=== PATIENT | male | born 1950 | race Caucasian/White ===

== ENCOUNTER 2021-01-23 02:14 | Inpatient (IN) | payer OTHER, SELFPAY ==
[~2021-01-23] VITALS: Ht 177.8 cm; Wt 100.7 kg
[2021-01-23 02:14] VITALS: BP_SYST 160
[2021-01-23 04:30] LABS: BASOPHILS % (AUTO) 0.2 % (0.0-2.0); HEMATOCRIT 44.4 % (36-54); HEMOGLOBIN 14.4 g/dL (14.0-18.0); LYMPHOCYTES # (AUTO) 0.9 K/uL (1.0-5.5); LYMPHOCYTES % (AUTO) 7.3 % (20.5-51.5); MEAN CORPUSCULAR HEMOGLOBIN 29 pg (27-31); MEAN CORPUSCULAR HGB CONC 32 % (32-36); MEAN CORPUSCULAR VOLUME 89 fL (79.0-98.0); MONOCYTES # (AUTO) 1.3 K/uL (0.0-1.0); MONOCYTES % (AUTO) 9.9 % (1.7-9.3); NEUTROPHILS # (AUTO) 10.7 K/uL (1.8-7.7); NEUTROPHILS % (AUTO) 82.6 % (40.0-70.0); PLATELET COUNT (AUTO) 392 K/uL (130-430); RED BLOOD CELL COUNT(AUTO) 4.97 MIL/uL (4.2-6.2); RED CELL DISTRIBUTION WIDTH 24.2 % (9.0-15.0)
[2021-01-23 04:43] LABS: CALCIUM 8.9 mg/dL (8.4-11.0); CREATININE 0.71 mg/dL (0.55-1.30); POTASSIUM 4.3 mmol/L (3.5-5.1)
[2021-01-23 04:52] LABS: ALBUMIN 2.3 g/dL (3.4-4.8); TOTAL BILIRUBIN 0.5 mg/dL (0.0-1.0)
[2021-01-23 07:44] LABS: BILIRUBIN,URINE 1+ (NEGATIVE); BLOOD, URINE 2+ (NEGATIVE); GLUCOSE,URINE NEGATIVE (NEGATIVE); KETONES,URINE 1+ (NEGATIVE); LEUKOCYTE ESTERASE ,URINE NEGATIVE (NEGATIVE); NITRITE, URINE NEGATIVE (NEGATIVE); PROTEIN URINE 3+ (NEGATIVE); UROBILINOGEN,URINE 0.2 (0.2-1.0)
[2021-01-23 07:45] LABS: CLARITY/URINE SLIGHTLY HAZY (CLEAR); COLOR,URINE AMBER (YELLOW)
[2021-01-23 07:57] LABS: BACTERIA,URINE RARE /HPF (None Seen); RBC,URINE 0-3 /HPF (0-3); WBC,URINE NONE SEEN /HPF (0-3)
[2021-01-23] MEDS ORDERED: FUROSEMIDE 40 MG TABLET PO SCH (10:15)
[2021-01-23] MEDS ORDERED: DOCUSATE SODIUM 100 MG CAPSULE PO PRN (10:30)
[2021-01-23] MEDS ORDERED: ONDANSETRON HCL 4 MG/2 ML VIAL IVP PRN (10:30)
[2021-01-23] MEDS ORDERED: ACETAMINOPHEN 325 MG TABLET PO PRN (10:30)
[2021-01-23] MEDS ORDERED: NALOXONE HCL 0.4 MG/ML AMP (NARCAN) IVP PRN (10:30)
[2021-01-23 11:05] LABS: BASOPHILS % (AUTO) 0.1 % (0.0-2.0); HEMATOCRIT 42.2 % (36-54); HEMOGLOBIN 13.7 g/dL (14.0-18.0); LYMPHOCYTES # (AUTO) 0.8 K/uL (1.0-5.5); LYMPHOCYTES % (AUTO) 5.9 % (20.5-51.5); MEAN CORPUSCULAR HEMOGLOBIN 29 pg (27-31); MEAN CORPUSCULAR HGB CONC 32 % (32-36); MEAN CORPUSCULAR VOLUME 90 fL (79.0-98.0); MONOCYTES # (AUTO) 1.2 K/uL (0.0-1.0); MONOCYTES % (AUTO) 9.2 % (1.7-9.3); NEUTROPHILS # (AUTO) 11.3 K/uL (1.8-7.7); NEUTROPHILS % (AUTO) 84.8 % (40.0-70.0); PLATELET COUNT (AUTO) 368 K/uL (130-430); RED BLOOD CELL COUNT(AUTO) 4.67 MIL/uL (4.2-6.2); WHITE BLOOD COUNT (AUTO) 13.3 K/uL (4.8-10.8)
[2021-01-23 11:26] LABS: ALANINE AMINOTRANSFERASE 18 U/L (12-78); ALBUMIN 2.1 g/dL (3.4-4.8); AMYLASE 17 U/L (0-100); ANION GAP 5 (5-15); ASPARTATE AMINOTRANSFERASE 14 U/L (10-37); CALCIUM 8.6 mg/dL (8.4-11.0); CHLORIDE 104 mmol/L (98-107); CREATININE 0.65 mg/dL (0.55-1.30); FREE T4 (FREE THYROXINE) 0.8 ng/dl (0.8-1.5); GLUCOSE 212 mg/dL (70-99); LIPASE 36 U/L (73-393); PHOSPHORUS 4.2 mg/dL (2.7-4.5); POTASSIUM 4.1 mmol/L (3.5-5.1); SODIUM SERUM 138 mmol/L (136-145); TOTAL BILIRUBIN 0.5 mg/dL (0.0-1.0); UREA NITROGEN, BLOOD 18 mg/dL (8-21)
[2021-01-23 11:27] LABS: GFR AFRICAN AMERICAN 157 mL/min (>90)
[2021-01-23] MEDS ORDERED: DEXTROSE 50% JECT 50 ML DISP.SYRIN IVP PRN (14:45)
[2021-01-23] MEDS ORDERED: GLUCOSE (DEXTROSE) ORAL GEL -Adults PO PRN (14:45)
[2021-01-23 15:16] VITALS: BP_SYST 148
[2021-01-23] MEDS ORDERED: IOHEXOL 350 mgI/mL, 150 ML INFUS..BTL IV ONE (16:12)
[2021-01-23 16:48] VITALS: BP_SYST 149
[2021-01-23] MEDS: INSULIN LISPRO SLIDING SCALE 100 UNITS/ML VIAL (humaLOG) SUBCUT PRN ×2 (17:23→21:02)
[2021-01-23] MEDS ORDERED: ZOLPIDEM TARTRATE 5 MG TABLET PO PRN (20:15)
[2021-01-23] MEDS: CARVEDILOL 6.25 MG TABLET (COREG) PO SCH (20:54)
[2021-01-23 21:50] VITALS: BP_SYST 159
[2021-01-24 00:59] VITALS: BP_SYST 107
[2021-01-24 06:52] LABS: BASOPHILS % (AUTO) 0.1 % (0.0-2.0); EOSINOPHILS % (AUTO) 0.4 % (0.0-4.0); HEMOGLOBIN 13.2 g/dL (14.0-18.0); LYMPHOCYTES # (AUTO) 1.1 K/uL (1.0-5.5); MEAN CORPUSCULAR HEMOGLOBIN 29 pg (27-31); MEAN CORPUSCULAR HGB CONC 32 % (32-36); MEAN CORPUSCULAR VOLUME 90 fL (79.0-98.0); MONOCYTES # (AUTO) 1.2 K/uL (0.0-1.0); MONOCYTES % (AUTO) 11.3 % (1.7-9.3); NEUTROPHILS # (AUTO) 8.4 K/uL (1.8-7.7); NEUTROPHILS % (AUTO) 78.2 % (40.0-70.0); PLATELET COUNT (AUTO) 320 K/uL (130-430); RED BLOOD CELL COUNT(AUTO) 4.56 MIL/uL (4.2-6.2); WHITE BLOOD COUNT (AUTO) 10.8 K/uL (4.8-10.8)
[2021-01-24 08:00] VITALS: BP_SYST 146
[2021-01-24] MEDS: CARVEDILOL 6.25 MG TABLET (COREG) PO SCH ×2 (09:11→20:34)
[2021-01-24] MEDS: FUROSEMIDE 40 MG TABLET PO SCH (09:12)
[2021-01-24 09:46] LABS: ALBUMIN 2.1 g/dL (3.4-4.8); CALCIUM 8.7 mg/dL (8.4-11.0); CREATININE 0.57 mg/dL (0.55-1.30); PHOSPHORUS 3.8 mg/dL (2.7-4.5); POTASSIUM 4.1 mmol/L (3.5-5.1); THYROID STIMULATING HORMONE 1.98 uIu/mL (0.36-3.74); TOTAL BILIRUBIN 0.4 mg/dL (0.0-1.0)
[2021-01-24] MEDS: INSULIN LISPRO SLIDING SCALE 100 UNITS/ML VIAL (humaLOG) SUBCUT PRN ×2 (11:52→20:48)
[2021-01-24 12:06] VITALS: BP_SYST 135
[2021-01-24] MEDS: HYDROcodone/ACETAMIN 5-325 MG TAB (NORCO/ VICODIN) PO PRN ×2 (13:14→20:34)
[2021-01-24 16:04] VITALS: BP_SYST 102
[2021-01-24 20:00] VITALS: BP_SYST 158
[2021-01-25] VITALS: BP_SYST 139
[2021-01-25 06:56] LABS: BASOPHILS % (AUTO) 0.2 % (0.0-2.0); EOSINOPHILS # (AUTO) 0.1 K/uL (0.0-0.4); EOSINOPHILS % (AUTO) 0.7 % (0.0-4.0); HEMATOCRIT 40.9 % (36-54); LYMPHOCYTES # (AUTO) 0.9 K/uL (1.0-5.5); LYMPHOCYTES % (AUTO) 8.7 % (20.5-51.5); MEAN CORPUSCULAR HEMOGLOBIN 29 pg (27-31); MEAN CORPUSCULAR HGB CONC 32 % (32-36); MEAN CORPUSCULAR VOLUME 92 fL (79.0-98.0); MONOCYTES # (AUTO) 1.3 K/uL (0.0-1.0); MONOCYTES % (AUTO) 12.6 % (1.7-9.3); NEUTROPHILS # (AUTO) 8.2 K/uL (1.8-7.7); NEUTROPHILS % (AUTO) 77.8 % (40.0-70.0); PLATELET COUNT (AUTO) 304 K/uL (130-430); RED BLOOD CELL COUNT(AUTO) 4.43 MIL/uL (4.2-6.2); RED CELL DISTRIBUTION WIDTH 24.8 % (9.0-15.0); WHITE BLOOD COUNT (AUTO) 10.5 K/uL (4.8-10.8)
[2021-01-25 07:12] LABS: CALCIUM 8.9 mg/dL (8.4-11.0); CREATININE 0.51 mg/dL (0.55-1.30); PHOSPHORUS 4.3 mg/dL (2.7-4.5); POTASSIUM 4.5 mmol/L (3.5-5.1)
[2021-01-25 08:00] VITALS: BP_SYST 146
[2021-01-25 08:20] VITALS: BP_SYST 146
[2021-01-25] MEDS: FUROSEMIDE 40 MG TABLET PO SCH (09:06)
[2021-01-25] MEDS: CARVEDILOL 6.25 MG TABLET (COREG) PO SCH (09:07)
== END 2021-01-25 09:34 | disposition short-term general hospital (02) | DRG 291 ==
LOC: SED 02:14 → SMU 05:48 → STU 01-24 03:57
PROVIDERS: ADMIT Family Medicine; ATTEND Family Medicine
DX: I11.0 Hypertensive heart disease with heart failure (principal); J96.01 Acute respiratory failure with hypoxia; E43 Unspecified severe protein-calorie malnutrition; I50.43 Acute on chronic combined systolic (congestive) and diastolic (congestive) heart failure; E11.9 Type 2 diabetes mellitus without complications; E66.9 Obesity, unspecified; D49.89 Neoplasm of unspecified behavior of other specified sites; I42.0 Dilated cardiomyopathy; I49.3 Ventricular premature depolarization; Z20.822 Contact with and (suspected) exposure to COVID-19; I25.10 Atherosclerotic heart disease of native coronary artery without angina pectoris; J44.9 Chronic obstructive pulmonary disease, unspecified; Z68.31 Body mass index [BMI] 31.0-31.9, adult; Z87.891 Personal history of nicotine dependence
CPT/HCPCS: 36415; 71045; 71260-TC; 76376; 80048; 80053; 80061; 81000; 82150; 82962; 83036; 83690; 83735; 83880; 84100; 84439; 84443; 84484; 85025; 93005; 93306; 99285; G0378; Q9967

== ENCOUNTER 2021-01-28 07:25 | Inpatient (IN) | payer OTHER, SELFPAY ==
[~2021-01-28] VITALS: Ht 175.3 cm; Wt 102.1 kg
[2021-01-28 07:46] VITALS: BP_SYST 179
[2021-01-28 08:22] LABS: BASOPHILS % (AUTO) 0.3 % (0.0-2.0); EOSINOPHILS % (AUTO) 0.1 % (0.0-4.0); HEMATOCRIT 43.6 % (36-54); LYMPHOCYTES # (AUTO) 0.8 K/uL (1.0-5.5); LYMPHOCYTES % (AUTO) 7.7 % (20.5-51.5); MEAN CORPUSCULAR HEMOGLOBIN 29 pg (27-31); MEAN CORPUSCULAR HGB CONC 32 % (32-36); MEAN CORPUSCULAR VOLUME 91 fL (79.0-98.0); MONOCYTES # (AUTO) 1.5 K/uL (0.0-1.0); MONOCYTES % (AUTO) 14.5 % (1.7-9.3); NEUTROPHILS # (AUTO) 8.2 K/uL (1.8-7.7); NEUTROPHILS % (AUTO) 77.4 % (40.0-70.0); PLATELET COUNT (AUTO) 330 K/uL (130-430); RED BLOOD CELL COUNT(AUTO) 4.81 MIL/uL (4.2-6.2); RED CELL DISTRIBUTION WIDTH 22.8 % (9.0-15.0); WHITE BLOOD COUNT (AUTO) 10.6 K/uL (4.8-10.8)
[2021-01-28 08:32] LABS: CALCIUM 9.4 mg/dL (8.4-11.0); CREATININE 0.69 mg/dL (0.55-1.30); POTASSIUM 4.1 mmol/L (3.5-5.1)
--- NOTE | 2021-01-28 08:34 | NUR ---
BROUGHT IN BY [facility], PLACED IN BED #1 , REPORT GIVEN TO MARIA VICTORIA
--- NOTE | 2021-01-28 08:35 | NUR ---
MD LINDQUIST AT BEDSIDE ASSESSING PT.
[2021-01-28 08:36] LABS: INR 1.2 (0.80-1.20); PROTHROMBIN TIME 12.8 SECS (9.5-12.5)
[2021-01-28 08:38] LABS: ALBUMIN 2.2 g/dL (3.4-4.8); TOTAL BILIRUBIN 0.8 mg/dL (0.0-1.0)
--- NOTE | 2021-01-28 08:45 | NUR ---
PT PLACED ON MONITOR. PT IS ALERT, C/O SOB NOT FEELING WILL. HX BACK TUMOR.
[2021-01-28] MEDS ORDERED: IPRATROPIUM BROM 0.5 MG/2.5 ML VIAL.NEB (ATROVENT) INH ONE (09:45)
[2021-01-28] MEDS ORDERED: ALBUTEROL SULFATE 0.083% 2.5 MG/3 ML VIAL.NEB INH ONE (09:45)
[2021-01-28 10:34] LABS: BILIRUBIN,URINE 2+ (NEGATIVE); BLOOD, URINE 1+ (NEGATIVE); CLARITY/URINE CLEAR (CLEAR); GLUCOSE,URINE NEGATIVE (NEGATIVE); KETONES,URINE 1+ (NEGATIVE); LEUKOCYTE ESTERASE ,URINE NEGATIVE (NEGATIVE); NITRITE, URINE NEGATIVE (NEGATIVE); PH,URINE 6.5 (5.0-8.0); PROTEIN URINE 3+ (NEGATIVE)
[2021-01-28 10:59] LABS: COLOR,URINE AMBER (YELLOW)
[2021-01-28 11:09] LABS: BACTERIA,URINE RARE /HPF (None Seen); WBC,URINE 0-3 /HPF (0-3)
--- NOTE | 2021-01-28 12:51 | NUR ---
PT WITH LARGE TUMOR/MASS ON LEFT BACK. PT HAVING DIFFICULTY WITH MOVING IN BED. PT WAS ABLE TO TURN HIMSELF ALL THE WAY TO OTHER SIDE.
--- NOTE | 2021-01-28 13:30 | NUR ---
ADMIT ORDERS FROM DR. MARSHALL TO GO TO [facility] NOTED AND CARRIED OUT. PT HOLDING IN ER.
[2021-01-28] MEDS ORDERED: PANTOPRAZOLE SODIUM 40 MG TAB PO ONE (14:00)
[2021-01-28] MEDS ORDERED: lisinopriL 20 MG TABLET PO ONE (14:00)
[2021-01-28] MEDS ORDERED: DOCUSATE SODIUM 100 MG/10 ML UDC PO PRN (14:00)
[2021-01-28] MEDS ORDERED: MORPHINE 2 MG/ML INJ. SYRINGE IVP PRN (14:00)
[2021-01-28] MEDS ORDERED: PROMETHAZINE HCL/CODEINE 6.25-10 mg/5 mL UDC PO PRN (14:00)
[2021-01-28] MEDS: NACL 0.9% 1,000 ML IV SCH (14:00)
[2021-01-28] MEDS ORDERED: ONDANSETRON HCL 4 MG/2 ML VIAL IVP PRN (14:00)
[2021-01-28] MEDS ORDERED: IPRATROPIUM/ALBUTEROL SULFATE 3 ML AMPUL.NEB (DUONEB) INH PRN (14:00)
[2021-01-28] MEDS: IPRATROPIUM/ALBUTEROL SULFATE 3 ML AMPUL.NEB (DUONEB) INH SCH (15:00)
--- NOTE | 2021-01-28 15:58 | NUR ---
PT HAS BEEN UP TO TOILET AMBULATING. PT WALKS WELL.
[2021-01-28 16:31] VITALS: BP_SYST 165
--- NOTE | 2021-01-28 16:32 | NUR ---
pt is refusing to have an IV placed
[2021-01-28 16:39] LABS: CALCIUM 8.9 mg/dL (8.4-11.0); CREATININE 0.7 mg/dL (0.55-1.30); FREE T4 (FREE THYROXINE) 0.9 ng/dl (0.8-1.5); PHOSPHORUS 3.6 mg/dL (2.7-4.5); POTASSIUM 4.4 mmol/L (3.5-5.1); THYROID STIMULATING HORMONE 2.33 uIu/mL (0.36-3.74)
[2021-01-28 17:45] VITALS: BP_SYST 160
--- NOTE | 2021-01-28 17:45 | NUR ---
ADMITTED TO [facility], TAKEN BY RN AND TECH. REPORT TO KENZIE. RM [id number]
--- NOTE | 2021-01-28 17:45 | NUR ---
Admit from ER Patient arrived on Med-Surg unit, report received from Noe NGUYEN. Patient awake and oriented x 4. No signs or symptoms of pain or distress. Patient receiving 2 L of O2 via N/C saturating 100%. Respirations 24 bpm. Bilateral lung bases diminished. Ambulatory with minimal assist. Large mass on patient's back with two wounds present. Multiple dry scabs on lower extremities. Will endorse to night nurse.
--- NOTE | 2021-01-28 19:00 | NUR ---
Closing Note Patient states he wants to sleep. Resting comfortably, no distress or pain. States tolerable level of pain /10. Just ate sandwich. Safety precautions in place, bed locked in lowest position and call light in reach. Will endorse to night nurse.
--- NOTE | 2021-01-28 19:30 | NUR ---
Opening note Received report from day nurse. Pt resting turned to left side. Verbally responsive, alert x4. On 2L NC no respiratory distress, non labored breathing. IV on LFA in place SL. All needs attended to, call light within reach. Bed to lowest/locked/alarmed. On fall/aspiration precaution.
[2021-01-28 20:00] VITALS: BP_SYST 138
[2021-01-28] MEDS: ACETAMINOPHEN 500 MG TABLET PO PRN (20:53)
[2021-01-28] MEDS: ZOLPIDEM TARTRATE 5 MG TABLET PO PRN (20:53)
[2021-01-28] MEDS ORDERED: FUROSEMIDE 40 MG/4 ML VIAL IVP SCH (21:00)
[2021-01-29] VITALS: BP_SYST 133
--- NOTE | 2021-01-29 05:00 | NUR ---
note IV dislodge, pt refused to reinsert states "not right now, I want to sleep". Unable to collect sputum and urine at this time, pt is uncooperative. will reattempt at a later time.
--- NOTE | 2021-01-29 06:05 | NUR ---
Closing note Pt sleeping, on 2L NC non labored, no SOB noted at this time. Pt still refused to reinsert IV, explain the importance of having an IV access. Pt got agitated and says no. Will endorse to day shift and retry. Bed to lowest/locked/alarmed. Call light within reach, on fall/aspiration precaution.
[2021-01-29] MEDS: NACL 0.9% 1,000 ML IV SCH ×2 (06:40→23:47)
--- NOTE | 2021-01-29 06:53 | NUR ---
CONSULTATION PAGED/CALLED Reason for Consultation: [] CARDI Person Who was Notified: [] FLAKITO Consulting Physician: [] DR CASTANEDA Retort Cooler Specialty: [] CARDIO Ordering Physician: [] Patience CAMACHO
--- NOTE | 2021-01-29 07:05 | NUR ---
CONSULTATION PAGED/CALLED Reason for Consultation: [] [facility] Person Who was Notified: [] JACOBY Consulting Physician: [] Andra COELLO Kettle Tender Specialty: [] PULMO Ordering Physician: [] DR YOUNG
[2021-01-29] MEDS: IPRATROPIUM/ALBUTEROL SULFATE 3 ML AMPUL.NEB (DUONEB) INH SCH ×3 (07:32→15:00)
[2021-01-29 08:00] VITALS: BP_SYST 136
--- NOTE | 2021-01-29 08:39 | NUR ---
ALERT, ORIENTED, C/O " FELT SO CONGESTED" EXPLAINED HE HAS CHF, THAT IS THE REASON. AGREEABLE, AND COMPLIANT WITH CARE, ATTEMPTED A NEW HL FOR LASIX NOW. SUGAR OBTAINED
[2021-01-29] MEDS ORDERED: POTASSIUM CHLORIDE 20 MEQ TAB.PRT.SR PO PRN (09:00)
--- NOTE | 2021-01-29 09:33 | NUR ---
ATTENDING MD TERESA MARSHALL WAS CALLED, RE: PIC LINE ORDER, NO IV ACCESS. Addendum: 01/29/21 at 6881 by Mayra Toussaint MT/ CORRECTION: YOANDY COCHRAN OUTSOLE CEMENTER
[2021-01-29] MEDS ORDERED: FUROSEMIDE 40 MG TABLET PO ONE (09:45)
--- NOTE | 2021-01-29 09:48 | NUR ---
ALERT, ORIENTED, AND VERY APPROPRIATE. ATTEMPT X 2 FOR A NEW HL, UNSUCCESSFUL. ATTENDING AGREES WITH PICC LINE FOR THIS PATIENT TO GET LASIX IVP, FOR NOW LASIX 40MG PO GIVEN UNTIL PICC LINE IN AWARE AND CONSENT SIGNED.
--- NOTE | 2021-01-29 09:51 | NUR ---
Nutrition Update Michel Scale 17 noted. Pt admitted for pulmonary mass, SOB. Diet: regular BMI: 18.5 kg/m2 RD to follow per nutrition care standards.
[2021-01-29] MEDS: lisinopriL 20 MG TABLET PO SCH (10:13)
[2021-01-29] MEDS: PANTOPRAZOLE SODIUM 40 MG TAB PO SCH (10:13)
[2021-01-29 10:37] LABS: BASOPHILS # (AUTO) 0.2 K/uL (0.0-0.2); BASOPHILS % (AUTO) 1.3 % (0.0-2.0); EOSINOPHILS % (AUTO) 0.3 % (0.0-4.0); HEMATOCRIT 43.8 % (36-54); HEMOGLOBIN 13.9 g/dL (14.0-18.0); LYMPHOCYTES # (AUTO) 0.8 K/uL (1.0-5.5); LYMPHOCYTES % (AUTO) 6.5 % (20.5-51.5); MEAN CORPUSCULAR HEMOGLOBIN 29 pg (27-31); MEAN CORPUSCULAR HGB CONC 32 % (32-36); MEAN CORPUSCULAR VOLUME 91 fL (79.0-98.0); MONOCYTES # (AUTO) 1.6 K/uL (0.0-1.0); MONOCYTES % (AUTO) 12.3 % (1.7-9.3); NEUTROPHILS # (AUTO) 10.4 K/uL (1.8-7.7); NEUTROPHILS % (AUTO) 79.6 % (40.0-70.0); PLATELET COUNT (AUTO) 322 K/uL (130-430); RED CELL DISTRIBUTION WIDTH 22.5 % (9.0-15.0); WHITE BLOOD COUNT (AUTO) 13.1 K/uL (4.8-10.8)
[2021-01-29 10:40] LABS: CREATININE 0.77 mg/dL (0.55-1.30); POTASSIUM 3.5 mmol/L (3.5-5.1)
--- NOTE | 2021-01-29 10:53 | NUR ---
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 NEEDS NEB TX NOW, RT TO TAKE CARE OF THIS. RIGHT UPPER BACK, SWOLLEN, RED, DRY SCAB SEEN, DRESSING CHANGED , ANYWAY.
[2021-01-29 11:06] LABS: INR 1.2 (0.80-1.20); PROTHROMBIN TIME 12.7 SECS (9.5-12.5)
[2021-01-29 12:00] VITALS: BP_SYST 136
[2021-01-29] MEDS: HYDROcodone/ACETAMIN 7.5-325 MG TAB PO PRN ×2 (14:49→23:44)
--- NOTE | 2021-01-29 15:06 | NUR ---
NOT COMPLAINED OF PAIN ON RIGHT UPPER BACK,UNTIL NOW, WHERE PATIENT HAD A HUGE MASS, WHICH TREATED [place] RECENTLY. THE SITE RED, GROSSLY SWOLLEN, ONE NORCO 7.5/325MG PO NORCO GIVEN FOR PAIN
[2021-01-29 16:36] VITALS: BP_SYST 134
--- NOTE | 2021-01-29 19:30 | NUR ---
Opening note Received report from day nurse. Pt resting with HOB elevated and turned to the side. Eyes closed, alert x3. No respiratory distress, non labored breathing, no discomfort noted, on RA and pt requested 2L NC to be put back on. No IV access. All needs attended to, call light within reach. Bed to lowest/locked/alarmed. On fall/aspiration precaution.
[2021-01-29] MEDS ORDERED: FUROSEMIDE 40 MG TABLET PO SCH (21:00)
[2021-01-29 21:04] VITALS: BP_SYST 137
[2021-01-29] MEDS: CARVEDILOL 12.5 MG TABLET (COREG) PO SCH (21:31)
[2021-01-29] MEDS: ZOLPIDEM TARTRATE 5 MG TABLET PO PRN (21:32)
[2021-01-29] MEDS: ACETAMINOPHEN 500 MG TABLET PO PRN (21:32)
--- NOTE | 2021-01-29 23:24 | NUR ---
note PICC line in place and good to use, placement by PICC line nurse Pt tolerated well. Addendum: 01/29/21 at 2356 by Natalia Cartwright LVN wrong documentation
--- NOTE | 2021-01-29 23:56 | NUR ---
note midline in place and good to use, placement by PICC line nurse Chencho. Pt tolerated well.
[2021-01-30 00:04] VITALS: BP_SYST 133
[2021-01-30 00:33] VITALS: BP_SYST 138
--- NOTE | 2021-01-30 03:00 | NUR ---
note Pt sleeping, non labored, no SOB at this time. IVF running on midline, no complications noted. Call light within reach. Bed to lowest and locked.
--- NOTE | 2021-01-30 06:19 | NUR ---
Closing note Pt resting in bed, no distress or discomfort. Midline in place and intact, IVF running with no complications. IVF. On 2L NC, no SOB at this time. All needs attended to and met. Call light within reach. Bed to lowest/locked/alarmed. On fall/aspiration precaution. Will endorse to day nurse.
[2021-01-30 07:00] VITALS: BP_SYST 131
[2021-01-30] MEDS: IPRATROPIUM/ALBUTEROL SULFATE 3 ML AMPUL.NEB (DUONEB) INH SCH ×3 (07:15→14:50)
[2021-01-30 07:17] LABS: BASOPHILS % (AUTO) 0.4 % (0.0-2.0); EOSINOPHILS # (AUTO) 0.1 K/uL (0.0-0.4); EOSINOPHILS % (AUTO) 0.7 % (0.0-4.0); HEMATOCRIT 43.8 % (36-54); HEMOGLOBIN 13.6 g/dL (14.0-18.0); LYMPHOCYTES # (AUTO) 1.1 K/uL (1.0-5.5); MEAN CORPUSCULAR HEMOGLOBIN 29 pg (27-31); MEAN CORPUSCULAR HGB CONC 31 % (32-36); MEAN CORPUSCULAR VOLUME 92 fL (79.0-98.0); MONOCYTES # (AUTO) 1.6 K/uL (0.0-1.0); MONOCYTES % (AUTO) 14.6 % (1.7-9.3); NEUTROPHILS % (AUTO) 74.3 % (40.0-70.0); PLATELET COUNT (AUTO) 268 K/uL (130-430); RED BLOOD CELL COUNT(AUTO) 4.74 MIL/uL (4.2-6.2); RED CELL DISTRIBUTION WIDTH 22.6 % (9.0-15.0); WHITE BLOOD COUNT (AUTO) 10.8 K/uL (4.8-10.8)
--- NOTE | 2021-01-30 07:35 | NUR ---
NURSE REPORT REPORT OBTAINED FROM NIGHT NURSE DAVID AND THIS NURSE ASSUMED CARE OF PATIENT. RECEIVED PATIENT ASLEEP WITHOUT ANY SXS OF PAIN OR DISTRESS.
[2021-01-30 08:14] LABS: CALCIUM 8.8 mg/dL (8.4-11.0); CREATININE 0.72 mg/dL (0.55-1.30); POTASSIUM 3.9 mmol/L (3.5-5.1)
--- NOTE | 2021-01-30 09:30 | NUR ---
NURSE NOTES VSS. AFEB. NO C/O PAIN OR DISCOMFORT. IV NS AT 60 ML/HR PATRICIA LIA ML. VOIDS IN URINAL.
[2021-01-30] MEDS: PANTOPRAZOLE SODIUM 40 MG TAB PO SCH (10:30)
[2021-01-30] MEDS: CARVEDILOL 12.5 MG TABLET (COREG) PO SCH ×2 (10:33→21:43)
[2021-01-30] MEDS: lisinopriL 20 MG TABLET PO SCH (10:34)
[2021-01-30] MEDS: FUROSEMIDE 40 MG/4 ML VIAL IVP SCH ×2 (10:41→21:36)
[2021-01-30 11:28] VITALS: BP_SYST 138
--- NOTE | 2021-01-30 11:39 | NUR ---
Dietitian Recommendations *Recommend: CCHO 2gm Na diet. Please see Nutritional Assessment for details. SANDY DEL RIO
--- NOTE | 2021-01-30 12:00 | NUR ---
NURSE NOTES VSS. AFEB. PATIENT ASKED FOR THE URINAL AND ONE WAS CLOSE BY ON THE SIDE RAILS. OTHER ONE WAS NEAR WINDOW AND BROUGHT THAT CLOSER TO PATIENT.
[2021-01-30 15:28] VITALS: BP_SYST 148
[2021-01-30] MEDS: NACL 0.9% 1,000 ML IV SCH ×2 (16:00→21:37)
--- NOTE | 2021-01-30 16:30 | NUR ---
NURSE NOTES VSS. AFEB. NO C/O PAIN OR DISCOMFORT. IV NS AT 60 ML/HR. ASKED FOR ASSISTANCE TO EAT, BUT HE IS ABLE TO GET HIMSELF TO THE BATHROOM. HE STATED HE NEEDED OXYGEN AT HOME. [facility] [place] WAS CALLED FOR HIS MEDICAL RECORDS BUT THEY WASN'T ABLE TO SEND SINCE THEY CLOSED AT 1639. NURSE TO CALL [facility] [place] [facility] TO GET MEDICAL RECORD AT 830. RELEASE OF INFORMATION WAS SIGNED BY THE PATIENT WITH THIS NURSE WITNESS. [facility] MEDICAL RECORD IS , FAX NUMBER IS .
--- NOTE | 2021-01-30 19:20 | NUR ---
NURSE REPORT AND ENDORSEMENT REPORT GIVEN TO NIGHT NURSE DAVID TO ASSUME CARE OF PATIENT. SBAR GIVEN AND ALL QUESTIONS ANSWERED.
--- NOTE | 2021-01-30 19:30 | NUR ---
Opening note Received report from day Nurse. Pt awake, lying on the side. Alertx3, IVF running on LIA midline, no complications at this time. Non labored, no SOB at this time on 2L NC. No distress. All needs attended to, call light within reach. Bed to lowest/locked. On fall/aspiration precaution.
[2021-01-30 20:36] VITALS: BP_SYST 158
[2021-01-30] MEDS: ZOLPIDEM TARTRATE 5 MG TABLET PO PRN (21:43)
[2021-01-30] MEDS: HYDROcodone/ACETAMIN 7.5-325 MG TAB PO PRN (21:44)
[2021-01-31] VITALS: BP_SYST 144
--- NOTE | 2021-01-31 02:30 | NUR ---
note pt sleeping, no distress at this time on 2L NC. No discomfort noted.
--- NOTE | 2021-01-31 06:23 | NUR ---
closing note Pt resting, awake easily to voice and touch. No respiratory distress on room air. No complaint or discomfort. IV patent and intact running IVF, Pt alert x3-4. Call light within reach, bed to lowest/locked/alarmed. On fall/aspiration precaution.
[2021-01-31 07:00] VITALS: BP_SYST 134
[2021-01-31] MEDS: IPRATROPIUM/ALBUTEROL SULFATE 3 ML AMPUL.NEB (DUONEB) INH SCH ×3 (07:00→15:00)
[2021-01-31 07:32] LABS: CALCIUM 8.8 mg/dL (8.4-11.0); CREATININE 0.57 mg/dL (0.55-1.30); POTASSIUM 3.6 mmol/L (3.5-5.1)
[2021-01-31 08:00] VITALS: BP_SYST 150
--- NOTE | 2021-01-31 08:00 | NUR ---
NURSE REPORT REPORT OBTAINED FROM NIGHT NURSE DAVID AT 0720 AND THIS NURSE ASSUMED CARE OF PATIENT. RECEIVED PATIENT ASLEEP AT BEGINNING OF SHIFT. VSS. AFEB. IV D5 1/2 NS INFUSING AT 60 ML/HR INTO LIA MIDLINE. NO C/O PAIN OR DISCOMFORT.
[2021-01-31 08:09] LABS: BASOPHILS % (AUTO) 0.5 % (0.0-2.0); EOSINOPHILS # (AUTO) 0.1 K/uL (0.0-0.4); EOSINOPHILS % (AUTO) 0.8 % (0.0-4.0); HEMATOCRIT 41.7 % (36-54); HEMOGLOBIN 13.2 g/dL (14.0-18.0); LYMPHOCYTES % (AUTO) 9.5 % (20.5-51.5); MEAN CORPUSCULAR HEMOGLOBIN 29 pg (27-31); MEAN CORPUSCULAR HGB CONC 32 % (32-36); MEAN CORPUSCULAR VOLUME 92 fL (79.0-98.0); MONOCYTES # (AUTO) 1.5 K/uL (0.0-1.0); MONOCYTES % (AUTO) 14.9 % (1.7-9.3); NEUTROPHILS # (AUTO) 7.5 K/uL (1.8-7.7); NEUTROPHILS % (AUTO) 74.3 % (40.0-70.0); PLATELET COUNT (AUTO) 265 K/uL (130-430); RED BLOOD CELL COUNT(AUTO) 4.52 MIL/uL (4.2-6.2); RED CELL DISTRIBUTION WIDTH 22.3 % (9.0-15.0); WHITE BLOOD COUNT (AUTO) 10.2 K/uL (4.8-10.8)
--- NOTE | 2021-01-31 08:30 | NUR ---
PATIENT REFUSED TREATMENT. PLAN: WILL ATTEMPT LATER.
[2021-01-31] MEDS ORDERED: FUROSEMIDE 40 MG TABLET PO ONE (09:00)
[2021-01-31] MEDS: CARVEDILOL 12.5 MG TABLET (COREG) PO SCH (09:59)
[2021-01-31] MEDS: lisinopriL 20 MG TABLET PO SCH (09:59)
[2021-01-31] MEDS: PANTOPRAZOLE SODIUM 40 MG TAB PO SCH (10:00)
--- NOTE | 2021-01-31 10:00 | NUR ---
NURSE CARE MED GIVEN WHOLE BUT TAKES AWHILE TO SWALLOW PILLS. LASIX GIVEN PO AND PATIENT VOIDS IN URINAL.
--- NOTE | 2021-01-31 11:30 | NUR ---
NURSE NOTES BANK ADVISOR STATED PATIENT WILL BE DISCHARGED TO [facility] AT 1500.
[2021-01-31 12:00] VITALS: BP_SYST 134
--- NOTE | 2021-01-31 12:39 | NUR ---
Patient accepted at [place] room 117B Number for report [phone]-Patient stated he is not vaccinated for covid. [facility] will transport at 3 PM
[2021-01-31 14:51] VITALS: BP_SYST 134
--- NOTE | 2021-01-31 15:12 | NUR ---
NURSE CARE MEDICATED FOR PAIN OF R SHOULDER 8-02/10 WITH MORPHINE 2 MG IVP THRU MIDLINE IN LIA WITH RELIEF OF PAIN.
[2021-01-31 15:45] VITALS: BP_SYST 150
--- NOTE | 2021-01-31 16:00 | NUR ---
DISCHARGE INSTRUCTIONS D/C INSTRUCTIONS GIVEN TO PATIENT AND HE SIGNED THE FORM THAT HE VERBALIZED THE INSTRUCTIONS. REPORT GIVEN TO NURSE KORTNEY AT [facility] [place]. D'C VIA [facility] WITH
[2021-02-01] MEDS ORDERED: FUROSEMIDE 40 MG TABLET PO SCH (09:00)
--- NOTE | 2021-02-02 14:07 | NUR ---
COMMUNITY LIAISON OFFICER followed up with phone call from Ms. Lo Manager Floor form APS [place] Office, regarding an APS referral generated at [facility] for Ministerio So , [place] also generated a APS referral for Aurea So, report # [id number]. Ms. Lo is trying to locate PtLeo Gilmore, he was D/C after he was readmitted on 01/28/2021 to [facility] in [place]. COMMUNITY LIAISON OFFICER provided relevant info to APS worker for her investigation, Ms. Lo will also follow up w/ Ms. Aurea So for resources and safety check.
== END 2021-01-31 16:20 | DRG 291 ==
LOC: SED 07:25 → SMU 10:58
PROVIDERS: ADMIT Family Medicine; ATTEND Family Medicine
DX: I11.0 Hypertensive heart disease with heart failure (principal); J96.01 Acute respiratory failure with hypoxia; E43 Unspecified severe protein-calorie malnutrition; C49.6 Malignant neoplasm of connective and soft tissue of trunk, unspecified; J44.1 Chronic obstructive pulmonary disease with (acute) exacerbation; C78.02 Secondary malignant neoplasm of left lung; I50.43 Acute on chronic combined systolic (congestive) and diastolic (congestive) heart failure; I42.0 Dilated cardiomyopathy; E11.9 Type 2 diabetes mellitus without complications; J44.9 Chronic obstructive pulmonary disease, unspecified; Z20.822 Contact with and (suspected) exposure to COVID-19; E66.9 Obesity, unspecified; Z91.14 Patient's other noncompliance with medication regimen; Z68.33 Body mass index [BMI] 33.0-33.9, adult
CPT/HCPCS: 36415; 71045; 80048; 80053; 80061; 81000; 82150; 82803-TC; 83036; 83605; 83690; 83735; 83880; 84100; 84439; 84443; 84484; 85025; 85610-TC; 85730-TC; 87081; 93005; 94640; 94760; J1940; J2270; J7613